=== PATIENT | male | born 1960 | race Caucasian/White ===

== ENCOUNTER 2017-04-12 12:41 | Emergency (ER) ==
[2017-04-12 12:45] VITALS: BP 115/77; TEMP 97.5; BMI 22.1
[2017-04-12 13:48] LABS: BASOPHILS % (AUTO) 0.7 % (0.0-3.0); EOSINOPHILS # (AUTO) 0.1 K/ul (0.0-0.7); EOSINOPHILS % (AUTO) 2.1 % (0.0-7.0); HEMATOCRIT 43.8 % (42.0-52.0); IMMATURE GRANULOCYTE % (AUTO) 0.3 % (0.0-5.0); LYMPHOCYTES # (AUTO) 1.1 K/uL (0.60-3.4); LYMPHOCYTES % (AUTO) 18.3 (10.0-50.0); MEAN CORPUSCULAR HEMOGLOBIN 29.6 pg (27.0-31.0); MEAN CORPUSCULAR HGB CONC 34.2 (31.8-35.4); MEAN CORPUSCULAR VOLUME 86.4 fl (80.0-94.0); MONOCYTES # (AUTO) 0.6 K/uL (0.4-2.0); MONOCYTES % (AUTO) 10.5 (0-10); NEUTROPHILS # (AUTO) 3.9 K/ul (2.0-6.9); NEUTROPHILS % (AUTO) 68.1; PLATELET COUNT 206 10^3/uL (140-440); RED BLOOD COUNT 5.07 10^6/ul (4.70-6.10); WHITE BLOOD COUNT 5.79 K/ul (4.2-10.2)
[2017-04-12 13:50] LABS: BILIRUBIN,URINE Negative (NEGATIVE); KETONES,URINE Negative (NEGATIVE); LEUKOCYTE ESTERASE ,URINE Negative (NEGATIVE); NITRITE,URINE Negative (NEGATIVE); PH,URINE 5.5 (5-9); PROTEIN,URINE Negative (NEGATIVE); URINE, BLOOD Negative (NEGATIVE)
[2017-04-12 13:51] LABS: ADD URINE MICROSCOPIC NO
--- NOTE | 2017-04-12 13:59 | CT ---
EXAM: Noncontrast CT of the chest HISTORY: Cough COMPARISON: None available TECHNIQUE: Noncontrast CT of the chest FINDINGS: A few right upper lobe calcified granulomas are present. There is a 3 mm probable perifissural lymp h node adjacent to the left major fissure on axial image 40. A left upper lobe subpleural pulmonary nodule is seen on axial image 52 measuring 5 mm. There is minimal bilateral lower lobe atelectasis . No focal consolidation, pleural effusion or pneumothorax is seen. Heart size is normal. No mediastinal lymphadenopathy is seen. Left hilar calcified lymph nodes are noted. There are mild to moderate degenerative changes of the thoracic spine. IMPRESSION: No acute cardiopulmonary findings. 5 mm left upper lobe pulmonary nodule. If the patient is high risk, a follow-up CT in 12 months cou ld be considered. Evidence of prior granulomatous infection.
[2017-04-12 14:14] LABS: ALBUMIN 3.9 g/dL (3.4-5.0); ALBUMIN/GLOBULIN RATIO 1.26; ANION GAP 13.1; BILIRUBIN,TOTAL 0.43 mg/dL (0.00-1.20); CALCIUM 9.7 mg/dL (8.2-10.2); CREATININE 1.2 mg/dL (0.60-1.10); POTASSIUM 4.1 mmol/L (3.5-5.1)
--- NOTE | 2017-04-12 14:20 | ED.PDOC ---
General ED Provider: Dr. DREW CERON Chief Complaint: Earache Stated Complaint: THROAT PAIN , RIGHT EAR PAIN Time Seen by Physician: 13:00 Mode of Arrival: Walk-In Information Source: Patient Exam Limitations: No limitations Nursing and Triage Documentation Reviewed and Agree: Yes (NOT SEEN ANY DOCTOR X 10 YEARS) EENT Complaint Exam - Throat Complaint/Exam Onset/Duration: 3 WEEKS Symptoms Are: Still present Timimg: Constant Initial Severity: Moderate Current Severity: Mild Aggravating: Reports: Eating Alleviating: Reports: None Associated Signs and Symptoms: Reports: Cough, Nasal congestion. Denies: Fever , Dysphagia, Drooling, Foreign body sensation, Chills, Wheezing, Hoarseness, Sinus discomfort, Difficulty breathing, Lethargy, Irritability, Decreased activity, Vomiting, Diarrhea, Decreased hearing, Ear drainage Uvula Midline: Yes Ayde-tonsillar Fluctuence: No Scarlatinaform Rash Present: No Stridor Present: No Sinus Tenderness Present: No Tonsillar Hypertrophy Present: No Tonsillar Exudate Present: No Ayde-tonsillar Swelling Present: No Adenopathy Present: No Splenomegaly Present: No Differential Diagnoses: Pharyngitis Review of Systems - Review Of Systems Constitutional: Reports: No symptoms Eyes: Reports: No symptoms Ears, Nose, Mouth, Throat: Reports: Throat pain Respiratory: Reports: Cough Cardiac: Reports: No symptoms GI: Reports: No symptoms : Reports: No symptoms Musculoskeletal: Reports: No symptoms Skin: Reports: No symptoms Neurological: Reports: No symptoms Endocrine: Reports: No symptoms Hematologic/Lymphatic: Reports: No symptoms All Other Systems: Reviewed and Negative Past Medical History - Past Medical History Previously Healthy: Yes Endocrine: Reports: None Cardiovascular: Reports: None Respiratory: Reports: None Hematological: Reports: None Gastrointestinal: Reports: None Genitourinary: Reports: None Neuro/Psych: Reports: None Musculoskeletal: Reports: None Cancer: Reports: None - Surgical History General Surgical History: Reports: None - Family History Family History: Reports: None - Social History Smoking Status: Never smoker Hx Substance Use: No Alcohol Screening: None Physical Exam - Physical Exam Appearance: Well-appearing, No pain distress, Well-nourished Eyes: CHARLI, EOMI, Conjunctiva clear ENT: Erythema Respiratory: Airway patent, Breath sounds clear, Breath sounds equal, Respirations nonlabored Cardiovascular: RRR, Pulses normal, No rub, No murmur GI/: Soft, Nontender, No masses, Bowel sounds normal, No Organomegaly Musculoskeletal: Normal strength, ROM intact, No edema, No calf tenderness Skin: Warm, Dry, Normal color Neurological: Sensation intact, Motor intact, Reflexes intact, Cranial nerves intact, Alert, Oriented Psychiatric: Affect appropriate, Mood appropriate Interpretation - Radiology Interpretation Radiology Interpretation By: Radiologist Radiology Results: Positive (PULM NODULE 5MM SHARED WITH MR COCO MAY PRESENT) Critical Care Note - Critical Care Note Total Time (mins): 0 Course - Course Hematology/Chemistry: 04/12/17 13:30 04/12/17 13:30 Orders, Labs, Meds: Lab Review 04/12/17 13:30 WBC 5.79 RBC 5.07 Hgb 15.0 Hct 43.8 MCV 86.4 MCH 29.6 MCHC 34.2 RDW Coeff of [place] 12.9 Plt Count 206 Immature Gran % (Auto) 0.3 Neut % (Auto) 68.1 Lymph % (Auto) 18.3 [place] % (Auto) 10.5 H Eos % (Auto) 2.1 Baso % (Auto) 0.7 Immature Gran # (Auto) 0.0 Neut # 3.9 Lymph # 1.1 [place] # 0.6 Eos # 0.1 Baso # 0.0 Sodium 141 Potassium 4.1 Chloride 106 Carbon Dioxide 26 Anion Gap 13.1 BUN 24 H Creatinine 1.20 H Estimated GFR (MDRD) 63.00 BUN/Creatinine Ratio 20.00 Glucose 83 Calcium 9.7 Total Bilirubin 0.43 AST 23 ALT 23 Alkaline Phosphatase 71 Total Protein 7.0 Albumin 3.9 Globulin 3.1 Albumin/Globulin Ratio 1.26 Urine Color Yellow Urine Clarity Clear Urine pH 5.5 Ur Specific [place] >=1.030 Urine Protein Negative Urine Glucose (UA) Negative Urine Ketones Negative Urine Blood Negative Urine Nitrite Negative Urine Bilirubin Negative Urine Urobilinogen 0.2 Ur Leukocyte Esterase Negative Orders Category Date Time Status BLOOD CULTURE Stat LAB 04/12/17 13:30 Received CBC W/ AUTO DIFF Stat LAB 04/12/17 13:30 Completed COMPREHENSIVE METABOLIC PANEL Stat LAB 04/12/17 13:30 Completed MOLECULAR GROUP A STREP Stat LAB 04/12/17 13:30 Results PSA [PROSTATE SPECIFIC ANTIGEN SCRN] Stat LAB 04/12/17 13:20 Received STREP SCREEN Stat LAB 04/12/17 13:30 Results UA [URINALYSIS C & S IF INDICATED] Stat LAB 04/12/17 13:[address] CHEST W/O CONTRAST Stat RADS 04/12/17 13:01 Completed Vital Signs: Temp Pulse Resp BP Pulse Ox 04/12/17 12:41 97.5 F L 65 18 115/77 95 Departure - Departure Time of Disposition: 14:21 (pulm nodule and psa result to be followed up discussed ) Disposition: HOME SELF-CARE Discharge Problem: Lung nodule Pharyngitis Qualifiers: Pharyngitis/tonsillitis etiology: unspecified etiology Qualifier Code: (J02.9) Acute pharyngitis, unspecified Instructions: Pulmonary Nodules (ED), Pharyngitis (ED) Condition: Good Pt referred to PMD for follow-up: No Additional Instructions: Please call your Family Physician as soon as possible to schedule a follow-up appointment. Allergies/Adverse Reactions: Allergies No Known Allergies Allergy (Verified 04/12/17 12:45) Home Medications: Ambulatory Orders 1 [No Reported Medications] 10/14/14
== END 2017-04-12 14:35 | disposition home or self-care (01) ==
LOC: ED 12:41
DX: J02.9 Acute pharyngitis, unspecified (principal); R91.1 Solitary pulmonary nodule; H92.01 Otalgia, right ear
CPT/HCPCS: 36415; 80053; 81001; 85025; 87040; 87651; 87880; 99283

== ENCOUNTER 2017-12-11 10:05 | Emergency (ER) ==
[2017-12-11 10:14] VITALS: BP 150/82; TEMP 99.5; BMI 22.8
[2017-12-11] MEDS ORDERED: DUONEB NEB STA (10:21)
[2017-12-11] MEDS ORDERED: DECADRON 4 MG/ML SDV IM STA (10:22)
--- NOTE | 2017-12-11 10:32 | ED.PDOC ---
General ED Provider: Dr. DREW CERON Chief Complaint: Fever Stated Complaint: fever , cough flu like sympt Time Seen by Physician: 10:00 Mode of Arrival: Walk-In Information Source: Patient Exam Limitations: No limitations Nursing and Triage Documentation Reviewed and Agree: Yes Reviewed sepsis parameters & appropriate labs ordered?: Yes System Inflammatory Response Syndrome: Not Applicable Sepsis Protocol: For patient's 13 years and over: Temp is 96.8 and below OR 101 and greater Pulse >90 BPM Resp >20/minute Acutely Altered Mental Status Are patient's symptoms suggestive of a new infection, such as: -Pneumonia -Skin, Soft Tissue -Endocarditis -UTI -Bone, Joint Infection -Implantable Device -Acute Abdominal Infection -Wound Infection -Meningitis -Blood Stream Catheter Infection -Unknown System Inflammatory Response Syndrome: Not Applicable Respiratory Complaint Exam - Respiratory Complaint/Exam Onset/Duration: 2 days Symptoms Are: Still present Timing: Intermittent Initial Severity: Moderate Current Severity: Moderate Location: Nose, Throat, Chest Character: Reports: Non-productive cough Aggravating: Reports: None Alleviating: Reports: None Associated Signs and Symptoms: Reports: URI, Nasal congestion Related History: Reports: Similar episode History of Healthcare-Acquired Pneumonia: No Related Surgical History: Reports: None Pulmonary Embolism Risk Factors: None Cardiac Risk Factors: Reports: None Pseudomonas Risk Factors: Reports: None Tuberculosis Risk Factors: Reports: None Status Asthmaticus Risk Factors: Reports: None Home Oxygen Use: No Recent Stress Test: No Recent Echo/LV Function: No Current Antibiotic Use: No Current Asthma Medication Use: No Respiratory Distress: None Inadequate Respiratory Effort: No Dysphagia Present: No Stridor Present: No JVD Present: No Accessory Muscle Use: No Retractions: Not Present Diminished Breath Sounds: No Grunting Respirations: No Kussmaul Respirations: No Differential Diagnoses: Pneumonia, Bronchitis Review of Systems - Review Of Systems Constitutional: Reports: Malaise Eyes: Reports: No symptoms Ears, Nose, Mouth, Throat: Reports: No symptoms Respiratory: Reports: Cough, Wheezing Cardiac: Reports: No symptoms GI: Reports: No symptoms : Reports: No symptoms Musculoskeletal: Reports: No symptoms Skin: Reports: No symptoms Neurological: Reports: No symptoms Endocrine: Reports: No symptoms Hematologic/Lymphatic: Reports: No symptoms All Other Systems: Reviewed and Negative Past Medical History - Past Medical History Previously Healthy: Yes Endocrine: Reports: None Cardiovascular: Reports: None Respiratory: Reports: None Hematological: Reports: None Gastrointestinal: Reports: None Genitourinary: Reports: None Neuro/Psych: Reports: None Musculoskeletal: Reports: None Cancer: Reports: None - Surgical History General Surgical History: Reports: None - Family History Family History: Reports: None - Social History Smoking Status: Never smoker Hx Substance Use: No Alcohol Screening: Occasionally Physical Exam - Physical Exam Appearance: Well-appearing, No pain distress, Well-nourished Eyes: CHARLI, EOMI, Conjunctiva clear ENT: Ears normal, Nose normal, Oropharynx normal Respiratory: Wheezes Cardiovascular: RRR, Pulses normal, No rub, No murmur GI/: Soft, Nontender, No masses, Bowel sounds normal, No Organomegaly Musculoskeletal: Normal strength, ROM intact, No edema, No calf tenderness Skin: Warm, Dry, Normal color Neurological: Sensation intact, Motor intact, Reflexes intact, Cranial nerves intact, Alert, Oriented Psychiatric: Affect appropriate, Mood appropriate Critical Care Note - Critical Care Note Total Time (mins): 0 Course - Course Orders, Labs, Meds: Orders Category Date Time Status NEBULIZER TREATMENT Stat CARDIO 12/11/17 10:21 Ordered FLU A/B MOLECULAR Stat LAB 12/11/17 10:21 Uncollected MOLECULAR GROUP A STREP Stat LAB 12/11/17 10:21 Uncollected Dexamethasone 4 mg/ml Inj [Decadron 4 mg/ml Sdv] MEDS 12/11/17 10:22 Discontinued 4 mg IM ONCE STA Ipratropium/Albuterol Neb [Duoneb] MEDS 12/11/17 10:21 Discontinued 1 vial NEB ONCE STA CHEST, 2 VIEWS PA & LAT Stat RADS 12/11/17 10:20 Ordered Medications Discontinued Medications Generic Name Dose Route Start Last Admin Trade Name Freq PRN Reason Stop Dose Admin Albuterol/Ipratropium 1 vial 12/11/17 10:21 Duoneb NEB 12/11/17 10:22 ONCE STA Dexamethasone Sodium Phosphate 4 mg 12/11/17 10:22 Decadron 4 Mg/Ml Sdv IM 12/11/17 10:23 ONCE STA Vital Signs: Temp Pulse Resp BP Pulse Ox 12/11/17 10:07 99.5 F 89 20 150/82 H 95 Departure - Departure Time of Disposition: 11:20 Disposition: HOME SELF-CARE Discharge Problem: Viral syndrome, Bronchitis Instructions: Viral Syndrome (ED), Acute Bronchitis (ED) Condition: Good Pt referred to PMD for follow-up: Yes IPMP verified?: Yes Additional Instructions: Please call your Family Physician as soon as possible to schedule a follow-up appointment. Allergies/Adverse Reactions: Allergies No Known Allergies Allergy (Verified 12/11/17 10:15) Home Medications: Ambulatory Orders 1 [No Reported Medications] 10/14/14 Disposition Discussed With: Patient
--- NOTE | 2017-12-11 11:57 | DI ---
EXAM: Chest two view. HISTORY: Cough. COMPARISON: None. FINDINGS: Heart size is normal. The lungs are clear without localized pulmonary infiltrate or pneum onia. There is no pleural fluid. Skeletal structures are unremarkable. IMPRESSION: 1. Negative chest. 2. No active cardiopulmonary disease is seen.
== END 2017-12-11 12:05 | disposition home or self-care (01) ==
LOC: ED 10:05
DX: B34.9 Viral infection, unspecified (principal); J40 Bronchitis, not specified as acute or chronic; R05 Cough
CPT/HCPCS: 87502; 87651; 94640; 96372; 99283

== ENCOUNTER 2018-06-13 10:26 | Emergency (ER) ==
[2018-06-13 10:34] VITALS: BP 113/68; TEMP 97.6; BMI 22.6
[2018-06-13] MEDS ORDERED: SODIUM CHLORIDE 1,000 ML IV STA (11:09)
[2018-06-13] MEDS ORDERED: ZOFRAN 4 MG/2 ML IVP STA (11:09)
[2018-06-13] MEDS ORDERED: DILAUDID 0.5 MG/0.5 ML SYRINGE IVP STA (11:16)
--- NOTE | 2018-06-13 11:17 | ED.PDOC ---
General ED Provider: Dr. MARCELA LOUIS Chief Complaint: Abdominal Pain Stated Complaint: Abdominal pain -onset arround midnight. Location in LLQ and Lt subdiaphragmatic. Severe intraabdominal pressure and pain.Movement increases discomfort.Experiencing Nausea without emesis. Denies diarrhea. Ate cereal with sunflower seeds last evening. Had similar episode a few weeks ago resulting in excessive gas formation -belching and passing gas. No know hx diverticular disease. Time Seen by Physician: 11:05 Information Source: Patient Exam Limitations: No limitations Nursing and Triage Documentation Reviewed and Agree: Yes Does patient meet sepsis criteria?: No System Inflammatory Response Syndrome: Not Applicable Sepsis Protocol: For patient's 13 years and over: Temp is 96.8 and below OR 101 and greater Pulse >90 BPM Resp >20/minute Acutely Altered Mental Status Are patient's symptoms suggestive of a new infection, such as: -Pneumonia -Skin, Soft Tissue -Endocarditis -UTI -Bone, Joint Infection -Implantable Device -Acute Abdominal Infection -Wound Infection -Meningitis -Blood Stream Catheter Infection -Unknown Review of Systems - Review Of Systems Constitutional: Reports: Diaphoresis, Malaise Eyes: Reports: No symptoms Ears, Nose, Mouth, Throat: Reports: No symptoms Respiratory: Reports: No symptoms Cardiac: Reports: No symptoms GI: Reports: Abdominal pain, Nausea, Poor appetite. Denies: Difficulty swallowing, Rectal bleeding, Vomiting : Reports: No symptoms Musculoskeletal: Reports: No symptoms Skin: Reports: No symptoms Neurological: Reports: No symptoms Endocrine: Reports: No symptoms All Other Systems: Reviewed and Negative Past Medical History - Past Medical History Previously Healthy: Yes Endocrine: Reports: None Cardiovascular: Reports: None Respiratory: Reports: None Hematological: Reports: None Gastrointestinal: Reports: None Genitourinary: Reports: None Neuro/Psych: Reports: None Musculoskeletal: Reports: None Cancer: Reports: None - Surgical History General Surgical History: Reports: None - Family History Family History: Reports: None - Social History Smoking Status: Never smoker Hx Substance Use: No Alcohol Screening: Occasionally Physical Exam - Physical Exam Appearance: Ill-appearing (exhibiting signs of being in moderately severe pain 10/10), Well-nourished Eyes: CHARLI, EOMI, Conjunctiva clear ENT: Ears normal, Nose normal, Oropharynx normal Respiratory: Airway patent, Breath sounds clear, Breath sounds equal, Respirations nonlabored Cardiovascular: RRR, Pulses normal, No rub, No murmur GI/: Soft, Nontender, No masses, Bowel sounds normal, No Organomegaly Musculoskeletal: Normal strength, ROM intact, No edema, No calf tenderness Skin: Warm, Dry, Normal color Neurological: Sensation intact, Motor intact, Reflexes intact, Cranial nerves intact, Alert, Oriented Psychiatric: Affect appropriate, Mood appropriate Interpretation - Radiology Interpretation Radiology Interpretation By: Radiologist Exam Interpreted: CT Scan Xray Comments: positive findings for diveritculitis Critical Care Note - Critical Care Note Total Time (mins): 60 Course - Course Hematology/Chemistry: 06/13/18 11:25 06/13/18 11:25 Orders, Labs, Meds: Lab Review 06/13/18 06/13/18 06/13/18 11:25 11:25 12:55 WBC 7.67 RBC 5.04 Hgb 14.5 Hct 43.3 MCV 85.9 MCH 28.8 MCHC 33.5 RDW Coeff of [place] 13.0 Plt Count 171 Immature Gran % (Auto) 0.3 Neut % (Auto) 75.1 Lymph % (Auto) 13.8 [place] % (Auto) 8.7 Eos % (Auto) 1.7 Baso % (Auto) 0.4 Immature Gran # (Auto) 0.0 Neut # (Auto) 5.8 Lymph # (Auto) 1.1 [place] # (Auto) 0.7 Eos # (Auto) 0.1 Baso # (Auto) 0.0 Sodium 140 Potassium 3.8 Chloride 105 Carbon Dioxide 27 Anion Gap 11.8 BUN 21 H Creatinine 1.12 H Estimated GFR (MDRD) 68.00 BUN/Creatinine Ratio 18.75 Glucose 60 L Calcium 9.3 Total Bilirubin 1.0 AST 17 ALT 18 Alkaline Phosphatase 61 Total Protein 6.5 Albumin 3.5 Globulin 3.0 Albumin/Globulin Ratio 1.17 Lipase 26 Urine Color Yellow Urine Clarity Clear Urine pH 6.0 Ur Specific [place] 1.015 Urine Protein Negative Urine Glucose (UA) Negative Urine Ketones Negative Urine Blood Negative Urine Nitrite Negative Urine Bilirubin Negative Urine Urobilinogen 0.2 Ur Leukocyte Esterase Negative Orders Category Date Time Status NPO REMINDER: IMAGING ONCE CARE 06/13/18 11:14 Completed ED IV/MEDIPORT/POWERPORT .ONCE EMERGENCY 06/13/18 11:09 Active CBC W/ AUTO DIFF Stat LAB 06/13/18 11:25 Completed CMP [COMPREHENSIVE METABOLIC PANEL] Stat LAB 06/13/18 11:25 Completed LIPASE Stat LAB 06/13/18 11:25 Completed UA [URINALYSIS C & S IF INDICATED] Stat LAB 06/13/18 12:55 Completed 0.9 % Sodium Chloride [Saline Flush] MEDS 06/13/18 11:09 Active 1 syr IVF PRN PRN 0.9 % Sodium Chloride [Saline Flush] MEDS 06/13/18 11:09 Active 1 syr IVF PRN PRN Ceftriaxone Sodium [Rocephin] MEDS 06/13/18 13:14 Discontinued 1 gm .ROUTE .STK-MED ONE Ceftriaxone Sodium [Rocephin] 1 gm MEDS 06/13/18 13:02 Discontinued 0.9 % Sodium Chloride [Sodium Chloride] 50 ml IV ONCE Hydromorphone HCl [Dilaudid 0.5 mg/0.5 ml Syringe] MEDS 06/13/18 11:16 Discontinued 0.5 mg IVP ONCE STA Hydromorphone HCl/Pf [Dilaudid 2 mg/ml Syringe] MEDS 06/13/18 12:58 Discontinued 2 mg IM ONCE STA Metronidazole/Sodium Chloride [Flagyl 500 mg/100 ml] MEDS 06/13/18 13:15 Discontinued 100 ml IV .STK-MED Metronidazole/Sodium Chloride [Flagyl 500 mg/100 ml] MEDS 06/13/18 12:59 Discontinued 500 mg Premix 100 ml Ns 1 bag IV ONCE Ondansetron HCl/Pf [Zofran 4 mg/2 ml] MEDS 06/13/18 11:09 Discontinued 4 mg IVP ONCE STA Sodium Chloride 0.9% [Sodium Chloride] 1,000 ml MEDS 06/13/18 11:09 Discontinued IV BOLUS CHEST, 1V AP ONLY Stat RADS 06/13/18 11:[address] ABDOMEN/PELVIS W/WO CONTRAS Stat RADS 06/13/18 11:11 Completed Medications Generic Name Dose Route Start Last Admin Trade Name Freq PRN Reason Stop Dose Admin Sodium Chloride 1 syr 06/13/18 11:09 06/13/18 11:53 Saline Flush IVF 1 syr PRN PRN Administration To flush IV Sodium Chloride 1 syr 06/13/18 11:09 Saline Flush IVF PRN PRN To flush IV Discontinued Medications Generic Name Dose Route Start Last Admin Trade Name Freq PRN Reason Stop Dose Admin Hydromorphone HCl 0.5 mg 06/13/18 11:16 06/13/18 11:54 Dilaudid 0.5 Mg/0.5 Ml Syringe IVP 06/13/18 11:17 0.5 mg ONCE STA Administration Hydromorphone HCl 2 mg 06/13/18 12:58 06/13/18 13:19 Dilaudid 2 Mg/Ml Syringe IM 06/13/18 12:59 2 mg ONCE STA Administration Sodium Chloride 1,000 mls @ 1,000 mls/hr 06/13/18 11:09 06/13/18 11:52 Sodium Chloride IV 06/13/18 12:08 1,000 mls/hr BOLUS STA Administration Metronidazole 500 mg/ Sodium 100 mls @ 100 mls/hr 06/13/18 12:59 06/13/18 14: 06 Chloride IV 06/13/18 13:58 100 mls/hr ONCE STA Administration Ceftriaxone Sodium 1 gm/ 50 mls @ 75 mls/hr 06/13/18 13:02 06/13/18 13:22 Sodium Chloride IV 06/13/18 13:41 75 mls/hr ONCE STA Administration Ondansetron HCl 4 mg 06/13/18 11:09 06/13/18 11:53 Zofran 4 Mg/2 Ml IVP 06/13/18 11:10 4 mg ONCE STA Administration Vital Signs: Temp Pulse Resp BP Pulse Ox 06/13/18 10:27 97.6 F 60 20 113/68 97 Departure - Departure Time of Disposition: 18:30 Disposition: HOME SELF-CARE Discharge Problem: Sigmoid diverticulitis Instructions: Diverticulitis (ED), Diverticulitis Diet (ED) Condition: Good Pt referred to PMD for follow-up: Yes (7-10 days) IPMP verified?: No Additional Instructions: Remain on clear liquid diet for next 24 hours then advance to full liquid/soft diet Take all antibiotics Use analgesics for control of pain May use plain Tylenol for mild to mod pain as needed Prescriptions: Hydrocodone Bit/Acetaminophen [[place] 7.5-325] 1 each PO Q6HR PRN #10 tablet PRN Reason: Abdominal Pain Amoxicillin/Potassium Clav [Augmentin Xr 1,000-62.5 Tab] 1 each PO BID 10 Days # 20 tab.er.12h Metronidazole [Flagyl] 500 mg PO TID 21 Days #21 tablet Allergies/Adverse Reactions: Allergies No Known Allergies Allergy (Verified 12/11/17 10:15) Home Medications: Ambulatory Orders Amoxicillin/Potassium Clav [Augmentin Xr 1,000-62.5 Tab] 1 each PO BID 10 Days # 20 tab.er.12h 06/13/18 Hydrocodone Bit/Acetaminophen [[place] 7.5-325] 1 each PO Q6HR PRN #10 tablet Metronidazole [Flagyl] 500 mg PO TID 21 Days #21 tablet 06/13/18 Ondansetron [Zofran Odt] 4 mg PO Q8H PRN #10 tab.rapdis 06/13/18 Disposition Discussed With: Patient
--- NOTE | 2018-06-13 12:44 | DI ---
EXAM: Chest one view HISTORY: Abdominal pain, shortness of breath COMPARISON: 12/11/2017 TECHNIQUE: Single view of the chest was performed FINDINGS: The lungs are clear. There is no pleural effusion or pneumothorax. The heart is normal i n size. The mediastinal contour is normal. There are no acute abnormalities of the bones. IMPRESSION: No acute cardiopulmonary process.
[2018-06-13] MEDS ORDERED: DILAUDID 2 MG/ML SYRINGE IM STA (12:58)
--- NOTE | 2018-06-13 12:58 | CT ---
EXAM: CT abdomen pelvis with and without contrast HISTORY: Severe abdominal pain COMPARISON: None TECHNIQUE: CT abdomen pelvis performed with and without intravenous contrast. Coronal and sagittal reformatted images obtained. FINDINGS: Mild dependent density lung bases. No free air. No acute abnormalities of the bones. De generative change in the spine. Heart normal in size. Liver appears normal. Gallbladder appears no rmal. Pancreas appears normal. Spleen appears normal. Adrenals appear normal. Kidneys appear norm al. Aorta normal in caliber. Mild atherosclerosis. Bladder unremarkable. Prostate normal in size. No lymphadenopathy or ascites. Stomach appears normal. No dilated loops small bowel. Appendix ap pears normal. Colonic diverticulosis. There is inflammatory stranding involving the proximal sigmoi d colon. No focal drainable collection. IMPRESSION: Acute sigmoid diverticulitis. No focal drainable collection. Finding called to Dr. Corral 12:49 p.m. 06/13/2018
[2018-06-13] MEDS ORDERED: FLAGYL 500 MG/100 ML 500 MG in PREMIX 100 ML NS 1 BAG IV STA (12:59)
[2018-06-13] MEDS ORDERED: ROCEPHIN 1 GM in SODIUM CHLORIDE 50 ML IV STA (13:02)
[2018-06-13] MEDS ORDERED: ROCEPHIN ONE (13:14)
[2018-06-13] MEDS ORDERED: FLAGYL 500 MG/100 ML 100 ML IV ONE (13:15)
== END 2018-06-13 17:00 | disposition home or self-care (01) ==
LOC: ED 10:26
DX: K57.32 Diverticulitis of large intestine without perforation or abscess without bleeding (principal)
CPT/HCPCS: 36415; 80053; 81001; 83690; 85025; 96365; 96367; 96375; 96376; 99283